=== PATIENT | male | born 1960 | race American Indian/Alaskan Native ===

== ENCOUNTER 2017-06-04 12:43 | Emergency (ER) | payer SELFPAY ==
--- NOTE | 2017-06-04 16:34 | Emergency Department Report ---
Chief Complaint: Upper Respiratory Infection Stated Complaint: FLU LIKE SYMPTOMS Time Seen by Provider: 06/04/17 16:33 - Exam Vital Signs: Vital Signs 06/04/17 13:02 Temperature 97.9 F Pulse Rate 60 Respiratory 18 Rate Blood Pressure 151/88 O2 Sat by Pulse 98 Oximetry MSE screening note: Focused history and physical exam performed. Due to findings the following was ordered: ED Disposition for MSE Condition: Stable
[2017-06-04] MEDS ORDERED: ASPIRIN PO ONE (17:23)
[2017-06-04 18:22] LABS: Basophils % (Auto) 0.7 % (0.0-1.8); Hematocrit 43.9 % (35.5-45.6); Hemoglobin 14.7 gm/dl (11.8-15.2); Lymphocytes % (Auto) 47.4 % (13.4-35.0); Mean Corpuscular HGB Conc 34 % (32-34); Mean Corpuscular Hemoglobin 29 pg (28-32); Mean Corpuscular Volume 87 fl (84-94); Monocytes # (Auto) 0.6 K/mm3 (0.0-0.8); Monocytes % (Auto) 14.6 % (0.0-7.3); Platelet Count 179 K/mm3 (140-440); Red Blood Count 5.04 M/mm3 (3.65-5.03); Red Cell Distribution Width 13.5 % (13.2-15.2)
[2017-06-04 18:24] LABS: BUN/Creatinine Ratio 17; Blood Urea Nitrogen 12 mg/dL (9-20); Calcium 8.7 mg/dL (8.4-10.2); Hemolysis Index 2
[2017-06-05] MEDS ORDERED: DUONEB *Not for PRN Use IH ONE (06:04)
--- NOTE | 2017-06-05 06:11 | Emergency Department Report ---
ED Chest Pain HPI - General Chief Complaint: Upper Respiratory Infection Stated Complaint: FLU LIKE SYMPTOMS Time Seen by Provider: 06/04/17 16:33 Source: patient Mode of arrival: Ambulatory Limitations: No Limitations - History of Present Illness Initial Comments: 56-year-old male presents to the emergency department with the complaints of flulike symptoms or symptoms of an upper respiratory infection. This started about one week ago when the patient had a mixed dry and productive cough. Since then he has had some intermittent chills and sweats, chest soreness, and he says that it feels like when he takes a breath it "takes my breath away." He is a tobacco smoker but has not had a cigarette since the symptoms began. He has not taken anything for his symptoms prior to presentation. No recent international travel or any sick contacts at home. 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 Denies any pmhx. No PCP for follow up. No known aggravating or alleviating factors. - Related Data Previous Rx's Medication Instructions Recorded Last Taken Type ALBUTEROL Inhaler [ProAir HFA 2 puff IH QID PRN #1 inhalation 06/05/17 Unknown Rx Inhaler] Benzonatate [Tessalon Perles] 100 mg PO Q8HR PRN #20 capsule 06/05/17 Unknown Rx guaiFENesin/CODEINE [Robitussin AC] 5 ml PO Q6H PRN #100 ml 06/05/17 Unknown Rx predniSONE [Deltasone] 20 mg PO QDAY #4 tab 06/05/17 Unknown Rx Allergies Allergy/AdvReac Type Severity Reaction Status Date / Time No Known Allergies Allergy Unverified 06/04/17 13:01 Heart Score - HEART Score History: Slightly suspicious EKG: Normal Age: 45-65 Risk factors: 1-2 risk factors Troponin: < normal limit HEART Score: 2 - Critical Actions Critical Actions: 0-3 pts:0.9-1.7%risk of adverse cardiac event.Candidate for discharge ED Review of Systems ROS: Stated complaint: FLU LIKE SYMPTOMS Other details as noted in HPI Comment: All other systems reviewed and negative Constitutional: chills, fever (subjective) Eyes: denies: eye pain, eye discharge, vision change ENT: denies: ear pain, throat pain Respiratory: cough, wheezing Cardiovascular: chest pain (soreness when coughing). denies: edema Gastrointestinal: denies: abdominal pain, nausea, diarrhea Genitourinary: denies: urgency, dysuria Musculoskeletal: myalgia. denies: joint swelling Skin: denies: rash, lesions Neurological: headache. denies: numbness, paresthesias ED Past Medical Hx - Past Medical History Previous Medical History?: No - Surgical History Past Surgical History?: No - Social History Smoking Status: Current Every Day Smoker Substance Use Type: None - Medications Home Medications: Home Medications Medication Instructions Recorded Confirmed Last Taken Type ALBUTEROL Inhaler [ProAir HFA 2 puff IH QID PRN #1 inhalation 06/05/17 Unknown Rx Inhaler] Benzonatate [Tessalon Perles] 100 mg PO Q8HR PRN #20 capsule 06/05/17 Unknown Rx guaiFENesin/CODEINE [Robitussin AC] 5 ml PO Q6H PRN #100 ml 06/05/17 Unknown Rx predniSONE [Deltasone] 20 mg PO QDAY #4 tab 06/05/17 Unknown Rx ED Physical Exam - General Limitations: No Limitations - Other Other exam information: GENERAL: The patient is well-developed well-nourished. HENT: Normocephalic. Atraumatic. Patient has moist mucous membranes. EYES: Extraocular motions are intact. Pupils equal reactive to light bilaterally. NECK: Supple. Trachea is midline. CHEST/LUNGS: There is some wheezing throughout the chest. A productive cough during examination. No tachypnea or accessory muscle use. There is no respiratory distress noted. HEART/CARDIOVASCULAR: Regular. There is no tachycardia. There is no murmur. ABDOMEN: Abdomen is soft, nontender. Patient has normal bowel sounds. There is no abdominal distention. SKIN: Skin is warm and dry. NEURO: The patient is awake, alert, and oriented. The patient is cooperative. The patient has no focal neurologic deficits. The patient has normal speech. MUSCULOSKELETAL: There is no tenderness or deformity. There is no limitation range of motion. There is no evidence of acute injury. ED Course Vital Signs 06/04/17 06/05/17 06/05/17 13:02 06:23 06:29 Temperature 97.9 F 98.4 F Pulse Rate 60 70 Pulse Rate [ 72 Anterior Bilateral Throughout] Respiratory 18 20 Rate Respiratory 20 Rate [Anterior Bilateral Throughout] Blood Pressure 151/88 Blood Pressure 174/101 [Left] O2 Sat by Pulse 98 95 Oximetry 06/05/17 06/05/17 06:56 07:05 Temperature Pulse Rate 71 Pulse Rate [ Anterior Bilateral Throughout] Respiratory 20 20 Rate Respiratory Rate [Anterior Bilateral Throughout] Blood Pressure Blood Pressure 148/95 [Left] O2 Sat by Pulse 95 97 Oximetry NAVJOT score - Navjot Score Age > 65: (0) No Aspirin use within the Past 7 Days: (0) No 3 or more CAD Risk Factors: (0) No 2 or more Angina events in past 24 hrs: (0) No Known CAD with more than 50% Stenosis: (0) No Elevated Cardiac Markers: (0) No ST Deviation Greater than 0.5mm: (0) No NAVJOT Score: 0 ED Medical Decision Making - Lab Data Result diagrams: 06/04/17 17:35 06/04/17 17:35 - EKG Data -: EKG Interpreted by Me EKG shows normal: sinus rhythm, axis, intervals, QRS complexes, ST-T waves Rate: bradycardia (49 bpm) - EKG Data When compared to previous EKG there are: previous EKG unavailable Interpretation: normal EKG (with bradycardia at 49 bpm) - Radiology Data Radiology results: image reviewed interpreted by me: Chest x-ray does not show any acute process. There are no pleural effusions, obvious pneumonia and there is no pneumothorax. - Medical Decision Making Patient says he feels improved. Vital signs stable throughout his ED course. He has shown some elevated blood pressure readings since he has been here but has some room for dietary and lifestyle changes including decreasing caffeinated products and salt intake. We also discussed continuing his smoking cessation since he has not had a cigarette in about one week. Chest x-ray does not show any acute process including no signs of pneumonia or pleural effusion. Labs have been unremarkable including negative troponins 3 and negative d- dimer. Patient is not having any chest pain but even as part of a chest pain workup the patient has low on the Heart score criteria and has a NAVJOT score of 0. His symptoms appear more consistent with bronchospasm and he will be treated with a few days of steroids, and albuterol inhaler. He'll be given Tessalon Perles for the days that he is driving his truck and Robitussin-ACf or the days he is not driving his truck. He has been given referrals for primary care physicians for follow-up. It is possible that the patient could've had influenza but his symptoms and going on for almost a week and therefore he is not a candidate for Tamiflu and therefore I have not checked him for influenza. But it does appear consistent with a viral URI. - Differential Diagnosis URI, Pneumonia, Asthma, Bronchitis Critical Care Time: No Critical care attestation.: If time is entered above; I have spent that time in minutes in the direct care of this critically ill patient, excluding procedure time. ED Disposition Clinical Impression: Elevated blood pressure reading, Bronchospasm Upper respiratory infection Qualifiers: URI type: unspecified URI Qualified Code(s): J06.9 - Acute upper respiratory infection, unspecified Disposition: DC-01 TO HOME OR SELFCARE Is pt being admited?: No Condition: Stable Instructions: How to Stop Smoking (ED), Upper Respiratory Infection (ED), DASH Eating Plan (ED), Hypertension (ED) Additional Instructions: Please follow up with a primary care physician regarding your recent symptoms as well as your elevated blood pressure readings. As we discussed, stay with foods are high in salt and caffeinated products to help with your blood pressure. You have already gone one week without smoking and therefore I recommend that you just quit completely and do not go back to it. This will also help with your elevated blood pressure readings. Keep a blood pressure log. Return to the emergency Department with any worsening of your symptoms or any acute distress. I have given you two different cough medications. The Tessalon Perles can be taken at any time, including while you are driving. The Robitussin AC has codeine in it and cannot be taken prior to driving, working or being responsible for children and cannot be mixed with alcohol of any quantity or else there is concern for sedation and respiratory distress. Prescriptions: ALBUTEROL Inhaler [ProAir HFA Inhaler] 2 puff IH QID PRN #1 inhalation PRN Reason: Shortness Of Breath Benzonatate [Tessalon Perles] 100 mg PO Q8HR PRN #20 capsule PRN Reason: Cough guaiFENesin/CODEINE [Robitussin AC] 5 ml PO Q6H PRN #100 ml PRN Reason: Cough predniSONE [Deltasone] 20 mg PO QDAY #4 tab Referrals: OBIEKWE,ONWURA, MD [Staff Physician] - 3-5 Days [facility] [Outside] - 3-5 Days Time of Disposition: 07:02
--- NOTE | 2017-06-05 06:24 | XRay Report ---
FINAL REPORT EXAM: XR CHEST ROUTINE 2V HISTORY: cough, flu TECHNIQUE: PA and lateral chest radiographs PRIORS: None. FINDINGS: No mediastinal shift. Cardiac silhouette is not enlarged. No pneumothorax, effusion, or focal pulmonary opacity. No acute skeletal finding. IMPRESSION: No focal pulmonary opacity.
[2017-06-05 07:05] VITALS: BP 148/95
== END 2017-06-05 07:43 | disposition home or self-care (01) ==
LOC: ED 12:43
DX: J06.9 Acute upper respiratory infection, unspecified (principal); R07.89 Other chest pain; R03.0 Elevated blood-pressure reading, without diagnosis of hypertension; J98.01 Acute bronchospasm; F17.200 Nicotine dependence, unspecified, uncomplicated
CPT/HCPCS: 36415; 71046; 80048; 84484; 85025; 85379; 93005; 93010